=== PATIENT | female | born 1950 ===

== ENCOUNTER 2018-01-26 12:00 | Outpatient (RCR) | payer OTHER | END 2018-02-12 | disposition home or self-care (01) | LOC: PTY 12:00 | DX: M54.5 Low back pain (principal) ==

== ENCOUNTER 2018-02-16 09:00 | Outpatient (RCR) | payer OTHER | END 2018-03-15 | disposition home or self-care (01) | LOC: PTY 09:00 | DX: M54.5 Low back pain (principal) ==